=== PATIENT | female | born 1985 | race Native Hawaiian/Other Pacific Islander ===

== ENCOUNTER 2018-04-09 10:29 | Outpatient (CLI) | payer OTHER | END 2018-04-09 10:30 | disposition home or self-care (01) | LOC: C.LAB 10:29 | DX: Z34.90 Encounter for supervision of normal pregnancy, unspecified, unspecified trimester (principal) ==

== ENCOUNTER 2018-04-29 09:41 | Outpatient (CLI) | payer OTHER | END 2018-04-29 09:42 | disposition home or self-care (01) | LOC: C.LAB 09:41 ==

== ENCOUNTER 2018-05-29 10:04 | Outpatient (CLI) | payer OTHER | END 2018-05-29 10:05 | disposition home or self-care (01) | LOC: C.LAB 10:04 | DX: Z34.03 Encounter for supervision of normal first pregnancy, third trimester (principal) ==

== ENCOUNTER 2018-06-23 10:06 | Outpatient (CLI) | payer OTHER | END 2018-06-23 10:07 | disposition home or self-care (01) | LOC: C.LAB 10:06 ==

== ENCOUNTER 2018-07-20 09:41 | Outpatient (CLI) | payer OTHER | END 2018-07-20 09:42 | disposition home or self-care (01) | LOC: C.LAB 09:41 | DX: Z36.1 Encounter for antenatal screening for raised alphafetoprotein level (principal) ==

== ENCOUNTER → 2018-07-28 | Outpatient (CLI) | payer OTHER | LOC: C.LAB 09:36 | DX: Z36.1 Encounter for antenatal screening for raised alphafetoprotein level (principal) ==